=== PATIENT | female | born 1960 | race Caucasian/White ===

== ENCOUNTER 2020-06-26 02:53 | Inpatient (IN) | payer SELFPAY ==
[2020-06-26] MEDS ORDERED: Aspirin 325 MG TAB ONE ×2 (03:46→09:10)
[2020-06-26 05:37] VITALS: BMI 31.0
[2020-06-26] MEDS ORDERED: Acetaminophen 325 MG TAB PO PRN (08:21)
[2020-06-26] MEDS ORDERED: Cepastat Lozenges 1 LOZ PO PRN (08:21)
[2020-06-26] MEDS ORDERED: Bisacodyl 5 MG TAB PO PRN (08:21)
[2020-06-26] MEDS ORDERED: GUAIFENESIN SF SOLN 200 MG/10 ML UDCUP PO PRN (08:21)
[2020-06-26] MEDS ORDERED: hydrALAZINE 20 MG/ML VIAL SLOW IVP PRN (08:21)
[2020-06-26] MEDS ORDERED: Sodium Chloride 0.65% Nasal 44 ML BOT EA NARE PRN (08:21)
[2020-06-26] MEDS ORDERED: Calcium Carbonate 500 MG ChewTAB PO PRN (08:21)
[2020-06-26] MEDS ORDERED: Loperamide HCl 2 MG CAP PO PRN (08:21)
[2020-06-26] MEDS ORDERED: Loratadine 10 MG TAB PO PRN (08:21)
[2020-06-26] MEDS ORDERED: Zolpidem Tartrate 5 MG TAB PO PRN (08:21)
[2020-06-26] MEDS ORDERED: Senokot S 8.6-50 MG TAB PO PRN ×2 (08:21→08:23)
[2020-06-26] MEDS ORDERED: Ondansetron PF 4 MG/2 ML Vial IVP PRN ×2 (08:21→08:23)
[2020-06-26] MEDS ORDERED: Ondansetron ODT 4 MG TAB PO PRN ×2 (08:21→08:23)
[2020-06-26] MEDS ORDERED: HYDROcodone/Acetaminophen 5/325 mg Tablet PO PRN (08:23)
[2020-06-26] MEDS ORDERED: Famotidine/PF 20 mg/2ml Vial ONE (09:10)
[2020-06-26] MEDS ORDERED: Enoxaparin Sodium 40 MG/0.4 ML SYRINGE ONE (09:10)
[2020-06-26] MEDS ORDERED: Famotidine 20 MG TAB ONE (09:12)
[2020-06-26] MEDS: Aspirin 325 mg Enteric Coated Tablet PO SCH (09:34)
[2020-06-26] MEDS: Famotidine 20 MG TAB PO SCH ×2 (09:34→21:29)
[2020-06-26] MEDS: Enoxaparin Sodium 40 MG/0.4 ML SYRINGE SC SCH (09:34)
[2020-06-26] MEDS: Carvedilol 3.125 MG TAB PO SCH (11:09)
[2020-06-26] MEDS ORDERED: Atorvastatin Calcium 40 MG TAB PO SCH (21:00)
[2020-06-26] MEDS ORDERED: Carvedilol 3.125 MG TAB PO SCH (21:00)
[2020-06-27 05:03] LABS: #Eosinphils 0.1 thou/uL (0.0-0.7); #Lymphocytes 2.8 thou/uL (1.20-3.40); #Monocytes 0.4 thou/uL (0.11-0.59); #Neutrophils 2.5 thou/uL (1.40-6.50); %Basophils 0.5 % (0.0-1.0); %Eosinophils 2.1 % (0.0-10.0); %Lymphocytes 47.8 % (21.0-51.0); %Monocytes 7.3 % (0.0-10.0); %Neutrophils 42.3 % (42.0-75.0); Hemoglobin 12.8 g/dL (12.0-16.0); Mean Corpuscular HGB CONC 33.7 g/dL (32.0-36.0); Mean Corpuscular Hemoglobin 32.8 pg (27.0-31.0); Mean Corpuscular Volume 97.3 fL (78.0-98.0); Platelet Count 191 thou/uL (130-400); RBC Distribution Width 11.5 % (11.5-14.5); Red Blood Cell (RBC) Count 3.91 mill/uL (4.20-5.40); White Blood Cell (WBC) Count 5.9 thou/uL (4.8-10.8)
[2020-06-27 05:28] LABS: ALT (SGPT) 14 U/L (8-55); AST (SGOT) 12 U/L (5-34); Albumin 3.4 g/dL (3.5-5.0); Alkaline Phosphatase 63 U/L (40-110); Anion Gap 9 mmol/L (10-20); BUN (Urea Nitrogen) 13 mg/dL (9.8-20.1); Bilirubin, Total 0.4 mg/dL (0.2-1.2); Calc. Creatinine Clearance 131 mL/min (70-130); Calcium 7.9 mg/dL (7.8-10.44); Carbon Dioxide 23 mmol/L (22-29); Cardiac Risk 3.1 (Less than 4.5); Chloride 110 mmol/L (98-107); Cholesterol 162 mg/dl (< 200 Desired); Globulin 2.4 g/dL (2.4-3.5); Glucose 97 mg/dL (70-105); HDL Cholesterol 52 mg/dL (>60 Neg Risk); LDL Cholesterol, Calculated 100 mg/dL; Potassium 3.7 mmol/L (3.5-5.1); Protein, Total 5.8 g/dL (6.0-8.3); Sodium 138 mmol/L (136-145); Triglycerides 49 mg/dL (Less than 150)
[2020-06-27 05:41] LABS: Syphilis Antibody Nonreactive (Nonreactive); Syphilis Antibody Index 0.03 S/CO (<1.00 Non-Reactive)
[2020-06-27] MEDS: Carvedilol 3.125 MG TAB PO SCH (09:37)
[2020-06-27] MEDS: Famotidine 20 MG TAB PO SCH (09:37)
[2020-06-27] MEDS: Enoxaparin Sodium 40 MG/0.4 ML SYRINGE SC SCH (09:37)
[2020-06-27] MEDS: Aspirin 325 mg Enteric Coated Tablet PO SCH (09:37)
[2020-06-27 11:33] VITALS: TEMP 97.4
[2020-06-27 12:58] VITALS: BP 132/78
== END 2020-06-27 14:34 | disposition home or self-care (01) | DRG 69 ==
LOC: ERS 02:53 → ERHOLD 03:52 → 2SE 13:30
PROVIDERS: ADMIT Student in an Organized Health Care Education/Training Program; ATTEND Hospitalist
DX: G45.9 Transient cerebral ischemic attack, unspecified (principal); E66.9 Obesity, unspecified; I10 Essential (primary) hypertension; E78.5 Hyperlipidemia, unspecified; Z68.31 Body mass index [BMI] 31.0-31.9, adult; Z86.73 Personal history of transient ischemic attack (TIA), and cerebral infarction without residual deficits; Z79.899 Other long term (current) drug therapy; Z79.82 Long term (current) use of aspirin
CPT/HCPCS: 36415; 70551; 80053; 80061; 85025; 86780; 99285; J1650; S0028

== ENCOUNTER 2021-01-11 02:14 | Emergency (ER) | payer SELFPAY ==
[2021-01-11] MEDS ORDERED: Morphine 4 MG/ML VIAL ONE (02:45)
[2021-01-11] MEDS ORDERED: HYDROcodone/Acetaminophen 5/325 mg Tablet ONE (04:48)
[2021-01-11] MEDS ORDERED: Ondansetron PF 4 MG/2 ML Vial ONE (04:51)
[2021-01-11] MEDS ORDERED: Promethazine HCl 25 MG/ML VIAL ONE (04:59)
[2021-01-11] MEDS ORDERED: Ketorolac Tromethamine 30 MG/ML VIAL ONE (16:33)
[2021-01-11] MEDS ORDERED: Famotidine 20 MG TAB ONE (17:50)
[2021-01-11] MEDS ORDERED: Mag-Al 1200 mg/1200 mg/30 ML UDCUP ONE (17:50)
[2021-01-11] MEDS ORDERED: Lidocaine Viscous Sol 2% 15 ml UD Cup ONE (17:50)
== END 2021-01-11 06:05 | disposition home or self-care (01) ==
LOC: ERS 02:14
DX: K76.89 Other specified diseases of liver (principal); I10 Essential (primary) hypertension; E78.5 Hyperlipidemia, unspecified; Z86.73 Personal history of transient ischemic attack (TIA), and cerebral infarction without residual deficits; Z79.02 Long term (current) use of antithrombotics/antiplatelets; Z79.899 Other long term (current) drug therapy
CPT/HCPCS: 76705; 96365; 96375; J1885; J2270; J2405; J2550

== ENCOUNTER 2021-01-11 13:55 | Emergency (ER) | payer SELFPAY ==
[2021-01-11 14:36] LABS: #Basophils 0.1 thou/uL (0.0-0.2); #Eosinphils 0.1 thou/uL (0.0-0.7); #Lymphocytes 2.2 thou/uL (1.20-3.40); #Monocytes 0.6 thou/uL (0.11-0.59); #Neutrophils 4.1 thou/uL (1.40-6.50); %Basophils 0.7 % (0.0-1.0); %Lymphocytes 31.4 % (21.0-51.0); %Monocytes 8.1 % (0.0-10.0); %Neutrophils 58.9 % (42.0-75.0); Hemoglobin 14.4 g/dL (12.0-16.0); Mean Corpuscular HGB CONC 35.9 g/dL (32.0-36.0); Mean Corpuscular Hemoglobin 34.4 pg (27.0-31.0); Mean Corpuscular Volume 95.9 fL (78.0-98.0); Mean Platelet Volume 7.9 fL (7.4-10.4); Platelet Count 215 thou/uL (130-400); RBC Distribution Width 11.2 % (11.5-14.5); White Blood Cell (WBC) Count 6.9 thou/uL (4.8-10.8)
[2021-01-11 14:50] LABS: ALT (SGPT) 15 U/L (8-55); AST (SGOT) 16 U/L (5-34); Alkaline Phosphatase 76 U/L (40-110); Anion Gap 12 mmol/L (10-20); BUN (Urea Nitrogen) 19 mg/dL (9.8-20.1); Bilirubin, Total 0.8 mg/dL (0.2-1.2); Calc. Creatinine Clearance 0 mL/min (70-130); Carbon Dioxide 23 mmol/L (22-29); Chloride 107 mmol/L (98-107); Globulin 2.5 g/dL (2.4-3.5); Glucose 96 mg/dL (70-105); Lipase 41 U/L (8-78); Potassium 4.1 mmol/L (3.5-5.1); Protein, Total 6.5 g/dL (6.0-8.3); Sodium 138 mmol/L (136-145)
[2021-01-11 17:50] LABS: Bacteria/HPF None Seen HPF (None Seen); Bilirubin Negative (Negative); Blood, Urine Negative (Negative); Clarity Clear (Clear); Glucose, Urine (Dipstick) Normal (Negative); Ketone, Urine Trace mg/dL (Negative); Leukocyte 75 Leu/uL (Negative); Nitrite Negative (Negative); Protein, Urine (Dipstick) Negative (Neg-Trace); RBC/HPF 0-3 HPF (0-3); Specific Gravity, Urine 1.016 (1.002-1.036); Squamous Epithelial 0-3 HPF (0-3); Urobilinogen Normal mg/dL (Less than 2); WBC/HPF 0-3 HPF (0-3); pH, Urine 6.5 (5.0-9.0)
== END 2021-01-11 18:30 | disposition home or self-care (01) ==
LOC: ERS 13:55
DX: R10.13 Epigastric pain (principal); I10 Essential (primary) hypertension; E78.5 Hyperlipidemia, unspecified; Z86.73 Personal history of transient ischemic attack (TIA), and cerebral infarction without residual deficits
CPT/HCPCS: 36415; 71045; 74177; 80053; 81003; 81015; 83690; 84484; 85025; 85379; 93005; 96374

== ENCOUNTER 2021-11-27 20:20 | Inpatient (IN) | payer SELFPAY ==
[~2021-11-27 20:20] MED LIST: Iopamidol-370 76% 500 ML 1 ML ONE
[2021-11-27] MEDS ORDERED: Morphine 4 MG/ML VIAL ONE (20:56)
[2021-11-27] MEDS ORDERED: Ondansetron PF 4 MG/2 ML Vial ONE (20:56)
[2021-11-27 21:04] LABS: #Eosinphils 0.1 thou/uL (0.0-0.7); #Lymphocytes 1.8 thou/uL (1.20-3.40); #Monocytes 0.9 thou/uL (0.11-0.59); #Neutrophils 6.9 thou/uL (1.40-6.50); %Basophils 0.5 % (0.0-1.0); %Eosinophils 0.7 % (0.0-10.0); %Lymphocytes 18.2 % (21.0-51.0); %Monocytes 8.9 % (0.0-10.0); %Neutrophils 71.6 % (42.0-75.0); Hemoglobin 13.1 g/dL (12.0-16.0); Mean Corpuscular HGB CONC 34.7 g/dL (32.0-36.0); Mean Corpuscular Hemoglobin 33.3 pg (27.0-31.0); Mean Corpuscular Volume 96.1 fL (78.0-98.0); Mean Platelet Volume 7.7 fL (7.4-10.4); Platelet Count 274 thou/uL (130-400); RBC Distribution Width 11.7 % (11.5-14.5); Red Blood Cell (RBC) Count 3.94 mill/uL (4.20-5.40); White Blood Cell (WBC) Count 9.6 thou/uL (4.8-10.8)
[2021-11-27] MEDS ORDERED: Fentanyl 100 MCG/2 ML VIAL ONE (21:20)
[2021-11-27 21:46] LABS: ALT (SGPT) 16 U/L (8-55); AST (SGOT) 18 U/L (5-34); Albumin 3.8 g/dL (3.5-5.0); Alkaline Phosphatase 97 U/L (40-110); Anion Gap 16 mmol/L (10-20); BUN (Urea Nitrogen) 14 mg/dL (9.8-20.1); Calc. Creatinine Clearance 0 mL/min (70-130); Carbon Dioxide 26 mmol/L (22-29); Chloride 102 mmol/L (98-107); Estimated GFR 86; Globulin 3.3 g/dL (2.4-3.5); Glucose 118 mg/dL (70-105); Lipase 37 U/L (8-78); Potassium 3.8 mmol/L (3.5-5.1); Protein, Total 7.1 g/dL (6.0-8.3); Sodium 140 mmol/L (136-145)
[2021-11-27 22:06] LABS: Bilirubin, Total 0.3 mg/dL (0.2-1.2)
[2021-11-27] MEDS ORDERED: Piperacillin/Tazobactam 4.5 GM VIAL ONE (22:29)
[2021-11-27 23:19] LABS: Bilirubin Negative (Negative); Blood, Urine Negative (Negative); Clarity Turbid (Clear); Glucose, Urine (Dipstick) Normal (Negative); Ketone, Urine Negative (Negative); Leukocyte Negative Leu/uL (Negative); Nitrite Negative (Negative); Protein, Urine (Dipstick) Negative (Neg-Trace); Urobilinogen Normal mg/dL (Less than 2)
[2021-11-27 23:21] LABS: Specific Gravity, Urine 1.048 (1.002-1.036)
[2021-11-28] MEDS ORDERED: Morphine 4 MG/ML VIAL SLOW IVP PRN (00:19)
[2021-11-28] MEDS: Ondansetron PF 4 MG/2 ML Vial IVP PRN ×3 (00:27→22:10)
[2021-11-28] MEDS: Lactated Ringer's 1,000 ML IV SCH ×2 (00:27→09:26)
[2021-11-28 01:19] VITALS: BMI 26.7
[2021-11-28] MEDS: Fentanyl 100 MCG/2 ML VIAL SLOW IVP PRN ×3 (02:19→14:53)
[2021-11-28] MEDS: Ketorolac Tromethamine 30 MG/ML VIAL IVP PRN ×3 (02:20→16:05)
[2021-11-28] MEDS ORDERED: Piperacillin/Tazobactam 4.5 GM in Sodium Chloride 0.9% 100 ML IVPB SCH (05:00)
[2021-11-28] MEDS ORDERED: Promethazine HCl 25 MG/ML VIAL IM PRN (15:20)
[2021-11-28] MEDS ORDERED: diphenhydrAMINE 25 MG CAP PO PRN (15:20)
[2021-11-28] MEDS ORDERED: Zolpidem Tartrate 5 MG TAB PO PRN (15:20)
[2021-11-28] MEDS ORDERED: Naloxone HCl 0.4 mg/ml Vial IV PRN (15:20)
[2021-11-28] MEDS ORDERED: diphenhydrAMINE 50 MG/ML VIAL IM PRN (15:20)
[2021-11-28] MEDS ORDERED: HYDROmorphone 10 mg/100 ml CADD IVPB PRN (15:20)
[2021-11-28] MEDS ORDERED: diphenhydrAMINE 50 MG/ML VIAL IVP PRN (15:20)
[2021-11-28] MEDS ORDERED: Ondansetron PF 4 MG/2 ML Vial IVP PRN (15:20)
[2021-11-28] MEDS ORDERED: Communication Order-Pharmacy FS SCH (15:30)
[2021-11-28] MEDS: D5 1/2 NS w/20 mEq KCL 1,000 ML IV SCH ×2 (16:06→19:39)
[2021-11-28] MEDS: Piperacillin/Tazobactam 3.375 GM in Sodium Chloride 0.9% 100 ML IVPB SCH (16:11)
[2021-11-28] MEDS ORDERED: Piperacillin/Tazobactam 3.375 GM in Sodium Chloride 0.9% 100 ML IVPB SCH (18:00)
[2021-11-29] MEDS: Piperacillin/Tazobactam 3.375 GM in Sodium Chloride 0.9% 100 ML IVPB SCH ×3 (00:08→15:59)
[2021-11-29 06:18] LABS: #Eosinphils 0.1 thou/uL (0.0-0.7); #Lymphocytes 2.2 thou/uL (1.20-3.40); #Monocytes 0.7 thou/uL (0.11-0.59); #Neutrophils 4.4 thou/uL (1.40-6.50); %Basophils 0.4 % (0.0-1.0); %Eosinophils 0.8 % (0.0-10.0); %Lymphocytes 29.7 % (21.0-51.0); %Monocytes 9.9 % (0.0-10.0); %Neutrophils 59.2 % (42.0-75.0); Mean Corpuscular HGB CONC 34.1 g/dL (32.0-36.0); Mean Corpuscular Hemoglobin 33.1 pg (27.0-31.0); Mean Corpuscular Volume 97.2 fL (78.0-98.0); Platelet Count 209 thou/uL (130-400); RBC Distribution Width 11.7 % (11.5-14.5); Red Blood Cell (RBC) Count 3.31 mill/uL (4.20-5.40); White Blood Cell (WBC) Count 7.4 thou/uL (4.8-10.8)
[2021-11-29 06:32] LABS: Anion Gap 13 mmol/L (10-20); BUN (Urea Nitrogen) 6 mg/dL (9.8-20.1); Calc. Creatinine Clearance 117 mL/min (70-130); Calcium 8.6 mg/dL (7.8-10.44); Carbon Dioxide 25 mmol/L (22-29); Chloride 106 mmol/L (98-107); Estimated GFR 101; Glucose 114 mg/dL (70-105); Potassium 3.8 mmol/L (3.5-5.1); Sodium 140 mmol/L (136-145)
[2021-11-29] MEDS: D5 1/2 NS w/20 mEq KCL 1,000 ML IV SCH ×2 (09:14→15:58)
[2021-11-29] MEDS: Ketorolac Tromethamine 30 MG/ML VIAL IVP PRN (09:29)
[2021-11-29] MEDS: Pantoprazole 40 MG VIAL IVP SCH (10:15)
[2021-11-29] MEDS ORDERED: Polyethylene Glycol 3350 17 GM Packet PO SCH (11:30)
[2021-11-29] MEDS ORDERED: Bisacodyl 10 MG SUPP PR SCH (11:30)
[2021-11-30] MEDS: Piperacillin/Tazobactam 3.375 GM in Sodium Chloride 0.9% 100 ML IVPB SCH ×3 (01:32→16:27)
[2021-11-30] MEDS: D5 1/2 NS w/20 mEq KCL 1,000 ML IV SCH ×2 (02:50→08:49)
[2021-11-30] MEDS: Pantoprazole 40 MG VIAL IVP SCH (08:50)
[2021-11-30] MEDS ORDERED: Magnesium Citrate 300 ML BOT PO SCH (09:45)
[2021-11-30] MEDS ORDERED: Fentanyl 100 MCG/2 ML VIAL SLOW IVP PRN (13:43)
[2021-11-30] MEDS: HYDROcodone/Acetaminophen 7.5/325 mg Tablet PO PRN ×2 (17:23→23:37)
[2021-11-30] MEDS: Ketorolac Tromethamine 30 MG/ML VIAL IVP PRN (23:38)
[2021-12-01] MEDS: Piperacillin/Tazobactam 3.375 GM in Sodium Chloride 0.9% 100 ML IVPB SCH ×2 (00:16→08:35)
[2021-12-01] MEDS: D5 1/2 NS w/20 mEq KCL 1,000 ML IV SCH (05:18)
[2021-12-01] MEDS: Pantoprazole 40 MG VIAL IVP SCH (08:35)
[2021-12-01 12:06] VITALS: BP 126/81; TEMP 97.8
== END 2021-12-01 14:00 | disposition home or self-care (01) | DRG 392 ==
LOC: ERS 20:20 → SURG B 21:59 → OBSVTOIN 11-28 17:25
PROVIDERS: ADMIT Surgery; ATTEND Surgery
DX: K57.20 Diverticulitis of large intestine with perforation and abscess without bleeding (principal); I10 Essential (primary) hypertension; E78.5 Hyperlipidemia, unspecified; Z86.73 Personal history of transient ischemic attack (TIA), and cerebral infarction without residual deficits; Z79.899 Other long term (current) drug therapy; Z79.02 Long term (current) use of antithrombotics/antiplatelets; Z79.82 Long term (current) use of aspirin
CPT/HCPCS: 36415; 74177; 80048; 80053; 81003; 83605; 83690; 85025; 93005; 96361; 96365; 96366; 96374; 96375; 96376; C9113; G0378; J1885; J2270; J2405; J2543; J2550; J3010; J3480; J3490; J7120; Q9967

== ENCOUNTER 2021-12-05 19:42 | Inpatient (IN) | payer SELFPAY ==
[2021-12-05] MEDS ORDERED: hydrALAZINE 20 MG/ML VIAL SLOW IVP PRN (19:45)
[2021-12-05] MEDS ORDERED: Dextrose 50% Abboject 50 ML SYRINGE SLOW IVP PRN (19:45)
[2021-12-05] MEDS ORDERED: GoLYTELY 4,000 ml Bottle PO SCH (19:45)
[2021-12-05] MEDS ORDERED: Promethazine HCl 25 MG/ML VIAL IM PRN (19:45)
[2021-12-05] MEDS ORDERED: Ketorolac Tromethamine 30 MG/ML VIAL IVP PRN (19:45)
[2021-12-05] MEDS ORDERED: Sodium Chloride 0.9% 1,000 ML IV SCH (19:45)
[2021-12-05] MEDS ORDERED: Dextrose 5% in Water 1,000 ML IV PRN (19:45)
[2021-12-05 20:27] LABS: #Basophils 0.1 thou/uL (0.0-0.2); #Eosinphils 0.1 thou/uL (0.0-0.7); #Lymphocytes 2.4 thou/uL (1.20-3.40); #Monocytes 0.6 thou/uL (0.11-0.59); #Neutrophils 4.3 thou/uL (1.40-6.50); %Basophils 0.9 % (0.0-1.0); %Eosinophils 0.9 % (0.0-10.0); %Lymphocytes 32.4 % (21.0-51.0); %Monocytes 7.9 % (0.0-10.0); %Neutrophils 57.8 % (42.0-75.0); Hemoglobin 12.9 g/dL (12.0-16.0); Mean Corpuscular HGB CONC 33.9 g/dL (32.0-36.0); Mean Corpuscular Hemoglobin 32.4 pg (27.0-31.0); Mean Corpuscular Volume 95.6 fL (78.0-98.0); Mean Platelet Volume 7.6 fL (7.4-10.4); Platelet Count 370 thou/uL (130-400); RBC Distribution Width 11.7 % (11.5-14.5); Red Blood Cell (RBC) Count 3.99 mill/uL (4.20-5.40); White Blood Cell (WBC) Count 7.4 thou/uL (4.8-10.8)
[2021-12-05 20:44] LABS: Anion Gap 16 mmol/L (10-20); BUN (Urea Nitrogen) 19 mg/dL (9.8-20.1); Calc. Creatinine Clearance 0 mL/min (70-130); Calcium 9.4 mg/dL (7.8-10.44); Carbon Dioxide 23 mmol/L (22-29); Chloride 107 mmol/L (98-107); Estimated GFR 81; Glucose 135 mg/dL (70-105); Potassium 3.5 mmol/L (3.5-5.1); Sodium 142 mmol/L (136-145)
[2021-12-05] MEDS: Famotidine 20 MG TAB PO SCH (21:37)
[2021-12-05] MEDS: Carvedilol 3.125 MG TAB PO SCH (21:53)
[2021-12-05] MEDS ORDERED: Acetaminophen 325 MG TAB PO PRN (21:59)
[2021-12-05 22:03] LABS: Bacteria/HPF None Seen HPF (None Seen); Bilirubin Negative (Negative); Blood, Urine Negative (Negative); Clarity Extra Turbid (Clear); Glucose, Urine (Dipstick) Normal (Negative); Ketone, Urine Trace mg/dL (Negative); Leukocyte Negative Leu/uL (Negative); Nitrite Negative (Negative); Protein, Urine (Dipstick) Negative (Neg-Trace); RBC/HPF 0-3 HPF (0-3); Specific Gravity, Urine 1.019 (1.002-1.036); Squamous Epithelial 0-3 HPF (0-3); Urobilinogen Normal mg/dL (Less than 2); WBC/HPF 0-3 HPF (0-3)
[2021-12-05] MEDS: Famotidine/PF 20 mg/2ml Vial SLOW IVP SCH (22:25)
[2021-12-05] MEDS: D5 1/2 NS w/20 mEq KCL 1,000 ML IV SCH (22:37)
[2021-12-06] MEDS: Piperacillin/Tazobactam 3.375 GM in Sodium Chloride 0.9% 100 ML IVPB SCH ×3 (00:28→16:06)
[2021-12-06] MEDS: Ondansetron PF 4 MG/2 ML Vial IVP PRN ×3 (02:03→21:34)
[2021-12-06] MEDS: Morphine 4 MG/ML VIAL SLOW IVP PRN ×3 (02:05→21:34)
[2021-12-06] MEDS: D5 1/2 NS w/20 mEq KCL 1,000 ML IV SCH ×3 (05:00→21:36)
[2021-12-06] MEDS: Famotidine 20 MG TAB PO SCH ×2 (08:28→20:04)
[2021-12-06] MEDS: Famotidine/PF 20 mg/2ml Vial SLOW IVP SCH ×2 (08:28→21:05)
[2021-12-06] MEDS ORDERED: PROPOFOL 200 MG/20 ML VIAL ONE (10:30)
[2021-12-06] MEDS ORDERED: EPINEPHrine 1 MG/10 ML Abboject SYRINGE ONE (10:30)
[2021-12-06] MEDS ORDERED: Phenylephrine 10 MG/ML VIAL ONE (10:30)
[2021-12-06] MEDS ORDERED: Fentanyl 100 MCG/2 ML VIAL ONE (11:35)
[2021-12-06] MEDS ORDERED: Ketorolac Tromethamine 30 MG/ML VIAL IVP PRN (14:45)
[2021-12-06] MEDS: Neomycin 500 mg Tablet PO SCH ×3 (17:52→21:33)
[2021-12-06] MEDS: Carvedilol 3.125 MG TAB PO SCH (20:04)
[2021-12-07] MEDS: Piperacillin/Tazobactam 3.375 GM in Sodium Chloride 0.9% 100 ML IVPB SCH ×4 (00:18→23:51)
[2021-12-07] MEDS: Morphine 4 MG/ML VIAL SLOW IVP PRN ×2 (05:59→13:47)
[2021-12-07] MEDS: Ondansetron PF 4 MG/2 ML Vial IVP PRN ×2 (05:59→13:47)
[2021-12-07] MEDS: D5 1/2 NS w/20 mEq KCL 1,000 ML IV SCH ×3 (06:39→21:53)
[2021-12-07] MEDS: Famotidine 20 MG TAB PO SCH ×2 (08:06→20:42)
[2021-12-07] MEDS: Famotidine/PF 20 mg/2ml Vial SLOW IVP SCH ×2 (08:06→20:42)
[2021-12-07] MEDS ORDERED: Bupivacaine 0.25% HCL 30 ML VIAL ONE ×2 (09:37→10:35)
[2021-12-07] MEDS ORDERED: Fentanyl 100 MCG/2 ML VIAL ONE ×2 (09:43→12:58)
[2021-12-07] MEDS ORDERED: Midazolam HCl 2 mg/2 ml Vial ONE (09:43)
[2021-12-07] MEDS ORDERED: fentaNYL Citrate/PF 100 MCG/2 ML SYRINGE ONE (10:03)
[2021-12-07] MEDS ORDERED: SUGAMMADEX SODIUM 200 MG/2 ML VIAL ONE (10:03)
[2021-12-07] MEDS ORDERED: Bupivacaine/Epinephrine 0.25% 30 ML VIAL ONE (10:07)
[2021-12-07] MEDS ORDERED: Albumin 5% 0 ML ONE (10:30)
[2021-12-07] MEDS ORDERED: Ondansetron PF 4 MG/2 ML Vial ONE (10:35)
[2021-12-07] MEDS ORDERED: PROPOFOL 200 MG/20 ML VIAL ONE (10:35)
[2021-12-07] MEDS ORDERED: Glycopyrrolate 0.2 MG/ML 5 ML SYRINGE ONE (10:35)
[2021-12-07] MEDS ORDERED: Dexamethasone 20 MG/5 ML VIAL ONE (10:35)
[2021-12-07] MEDS ORDERED: Labetalol HCl 100 MG/20 ML VIAL ONE (10:35)
[2021-12-07] MEDS ORDERED: Lidocaine 1% MPF 2 ML VIAL ONE (10:35)
[2021-12-07] MEDS ORDERED: NEOSTIGMINE 3 MG/3 ML SYR 3 MG/3 ML SYRINGE ONE (10:35)
[2021-12-07] MEDS ORDERED: Ketorolac Tromethamine 30 MG/ML VIAL ONE (10:35)
[2021-12-07] MEDS ORDERED: Rocuronium Bromide 10 MG/ML (10ML VIAL) ONE (10:35)
[2021-12-07] MEDS ORDERED: Promethazine HCl 25 MG/ML VIAL IM PRN (12:09)
[2021-12-07] MEDS ORDERED: Ondansetron HCl/PF 4 MG/2 ML Vial IVP PRN (12:09)
[2021-12-07] MEDS ORDERED: Promethazine HCl 25 MG/ML VIAL IVPB PRN (12:09)
[2021-12-07] MEDS ORDERED: Ondansetron PF 4 MG/2 ML Vial IVP PRN (13:45)
[2021-12-07] MEDS ORDERED: Ketorolac Tromethamine 30 MG/ML VIAL IVP PRN (13:45)
[2021-12-07] MEDS ORDERED: hydrALAZINE 20 MG/ML VIAL SLOW IVP PRN (13:45)
[2021-12-07] MEDS: Fentanyl 100 MCG/2 ML VIAL SLOW IVP PRN ×2 (14:39→17:01)
[2021-12-07] MEDS ORDERED: Naloxone HCl 0.4 mg/ml Vial IV PRN (19:00)
[2021-12-07] MEDS ORDERED: diphenhydrAMINE 50 MG/ML VIAL IM/IV PRN (19:00)
[2021-12-07] MEDS ORDERED: diphenhydrAMINE 25 MG CAP PO PRN (19:00)
[2021-12-07] MEDS: Morphine Sulfate 100 MG in Dextrose 5% in Water 98 ML IV SCH (19:44)
[2021-12-07] MEDS: Carvedilol 3.125 MG TAB PO SCH (20:42)
[2021-12-07] MEDS: Promethazine HCl 25 MG/ML VIAL IM PRN (20:42)
[2021-12-07] MEDS: Ketorolac Tromethamine 30 MG/ML VIAL IVP SCH (23:52)
[2021-12-08 05:38] LABS: #Lymphocytes 1.1 thou/uL (1.20-3.40); #Monocytes 0.8 thou/uL (0.11-0.59); #Neutrophils 11.1 thou/uL (1.40-6.50); %Eosinophils 0.1 % (0.0-10.0); %Lymphocytes 8.5 % (21.0-51.0); %Monocytes 5.9 % (0.0-10.0); %Neutrophils 85.4 % (42.0-75.0); Hemoglobin 13.2 g/dL (12.0-16.0); Mean Corpuscular Hemoglobin 31.6 pg (27.0-31.0); Mean Corpuscular Volume 95.6 fL (78.0-98.0); Mean Platelet Volume 7.8 fL (7.4-10.4); Platelet Count 299 thou/uL (130-400); RBC Distribution Width 11.8 % (11.5-14.5); Red Blood Cell (RBC) Count 4.17 mill/uL (4.20-5.40); White Blood Cell (WBC) Count 12.9 thou/uL (4.8-10.8)
[2021-12-08 05:55] LABS: Anion Gap 14 mmol/L (10-20); BUN (Urea Nitrogen) 5 mg/dL (9.8-20.1); Calc. Creatinine Clearance 107 mL/min (70-130); Calcium 9.2 mg/dL (7.8-10.44); Carbon Dioxide 22 mmol/L (22-29); Chloride 104 mmol/L (98-107); Estimated GFR 100; Glucose 155 mg/dL (70-105); Potassium 4.1 mmol/L (3.5-5.1); Sodium 136 mmol/L (136-145)
[2021-12-08] MEDS: Ketorolac Tromethamine 30 MG/ML VIAL IVP SCH ×4 (06:17→23:31)
[2021-12-08] MEDS: D5 1/2 NS w/20 mEq KCL 1,000 ML IV SCH ×3 (06:18→22:08)
[2021-12-08] MEDS: Famotidine 20 MG TAB PO SCH ×2 (08:05→20:10)
[2021-12-08] MEDS: Piperacillin/Tazobactam 3.375 GM in Sodium Chloride 0.9% 100 ML IVPB SCH (08:06)
[2021-12-08] MEDS: Famotidine/PF 20 mg/2ml Vial SLOW IVP SCH ×2 (08:06→20:24)
[2021-12-08] MEDS ORDERED: HYDROcodone/Acetaminophen 7.5/325 mg Tablet PO PRN (12:44)
[2021-12-08] MEDS: Acetaminophen 500 MG TAB PO SCH ×4 (13:06→23:30)
[2021-12-08] MEDS: Carvedilol 3.125 MG TAB PO SCH (20:09)
[2021-12-09] MEDS: Acetaminophen 500 MG TAB PO SCH ×5 (05:08→20:01)
[2021-12-09] MEDS: Ketorolac Tromethamine 30 MG/ML VIAL IVP SCH ×3 (05:09→18:06)
[2021-12-09] MEDS: Famotidine 20 MG TAB PO SCH ×2 (08:25→20:01)
[2021-12-09] MEDS: Famotidine/PF 20 mg/2ml Vial SLOW IVP SCH ×2 (09:08→21:38)
[2021-12-09] MEDS: D5 1/2 NS w/20 mEq KCL 1,000 ML IV SCH (11:17)
[2021-12-09] MEDS: Morphine Sulfate 100 MG in Dextrose 5% in Water 98 ML IV SCH (12:52)
[2021-12-09] MEDS: Carvedilol 3.125 MG TAB PO SCH (20:01)
[2021-12-10] MEDS: Acetaminophen 500 MG TAB PO SCH ×6 (01:17→20:38)
[2021-12-10] MEDS: D5 1/2 NS w/20 mEq KCL 1,000 ML IV SCH ×3 (01:17→22:03)
[2021-12-10] MEDS: Famotidine 20 MG TAB PO SCH ×2 (08:31→20:40)
[2021-12-10] MEDS: Famotidine/PF 20 mg/2ml Vial SLOW IVP SCH (08:45)
[2021-12-10] MEDS ORDERED: HYDROcodone/Acetaminophen 7.5/325 mg Tablet PO PRN (11:53)
[2021-12-10] MEDS ORDERED: Fentanyl 100 MCG/2 ML VIAL SLOW IVP PRN (12:06)
[2021-12-10] MEDS ORDERED: HYDROcodone/Acetaminophen 5/325 mg Tablet ONE (14:31)
[2021-12-10] MEDS: Carvedilol 3.125 MG TAB PO SCH (20:37)
[2021-12-10] MEDS: Ketorolac Tromethamine 30 MG/ML VIAL IVP PRN (20:40)
[2021-12-11] MEDS: Acetaminophen 500 MG TAB PO SCH ×4 (03:07→20:33)
[2021-12-11] MEDS: Ketorolac Tromethamine 30 MG/ML VIAL IVP PRN (03:08)
[2021-12-11] MEDS: D5 1/2 NS w/20 mEq KCL 1,000 ML IV SCH ×2 (05:44→14:58)
[2021-12-11 05:58] LABS: #Eosinphils 0.5 thou/uL (0.0-0.7); #Lymphocytes 3.5 thou/uL (1.20-3.40); #Monocytes 0.7 thou/uL (0.11-0.59); #Neutrophils 3.7 thou/uL (1.40-6.50); %Basophils 0.5 % (0.0-1.0); %Eosinophils 5.5 % (0.0-10.0); %Lymphocytes 41.5 % (21.0-51.0); %Monocytes 8.9 % (0.0-10.0); %Neutrophils 43.6 % (42.0-75.0); Hemoglobin 11.9 g/dL (12.0-16.0); Mean Corpuscular HGB CONC 33.1 g/dL (32.0-36.0); Mean Corpuscular Hemoglobin 31.9 pg (27.0-31.0); Mean Corpuscular Volume 96.3 fL (78.0-98.0); Mean Platelet Volume 7.5 fL (7.4-10.4); Platelet Count 328 thou/uL (130-400); RBC Distribution Width 11.9 % (11.5-14.5); Red Blood Cell (RBC) Count 3.74 mill/uL (4.20-5.40); White Blood Cell (WBC) Count 8.4 thou/uL (4.8-10.8)
[2021-12-11 06:35] LABS: Anion Gap 13 mmol/L (10-20); BUN (Urea Nitrogen) 6 mg/dL (9.8-20.1); Calc. Creatinine Clearance 113 mL/min (70-130); Calcium 9.1 mg/dL (7.8-10.44); Carbon Dioxide 25 mmol/L (22-29); Chloride 102 mmol/L (98-107); Estimated GFR 100; Glucose 112 mg/dL (70-105); Potassium 3.9 mmol/L (3.5-5.1); Sodium 136 mmol/L (136-145)
[2021-12-11] MEDS: Aspirin Chewable 81 MG TAB PO SCH (09:20)
[2021-12-11] MEDS: Famotidine 20 MG TAB PO SCH ×2 (09:21→20:34)
[2021-12-11] MEDS: Morphine Sulfate 100 MG in Dextrose 5% in Water 98 ML IV SCH (09:23)
[2021-12-11] MEDS ORDERED: Milk Of Magnesia 30 ML UDCUP PO ONE (14:06)
[2021-12-11] MEDS: Carvedilol 3.125 MG TAB PO SCH (20:34)
[2021-12-12] MEDS: D5 1/2 NS w/20 mEq KCL 1,000 ML IV SCH ×3 (01:15→19:15)
[2021-12-12] MEDS: Acetaminophen 500 MG TAB PO SCH ×2 (04:14→09:11)
[2021-12-12] MEDS: Aspirin Chewable 81 MG TAB PO SCH (09:11)
[2021-12-12] MEDS: Famotidine 20 MG TAB PO SCH ×2 (09:11→20:27)
[2021-12-12] MEDS ORDERED: Fentanyl 100 MCG/2 ML VIAL SLOW IVP PRN (09:31)
[2021-12-12] MEDS ORDERED: HYDROcodone/Acetaminophen 5/325 mg Tablet PO PRN (09:32)
[2021-12-12] MEDS ORDERED: traMADol HCl 50 MG TAB PO PRN (09:32)
[2021-12-12] MEDS: Ondansetron PF 4 MG/2 ML Vial IVP PRN ×2 (09:48→14:55)
[2021-12-12] MEDS: Promethazine HCl 25 MG/ML VIAL IM PRN (15:50)
[2021-12-12] MEDS: HYDROcodone/Acetaminophen 5/325 mg Tablet PO PRN ×2 (18:32→21:47)
[2021-12-12] MEDS: Carvedilol 3.125 MG TAB PO SCH (20:26)
[2021-12-12] MEDS: traMADol HCl 50 MG TAB PO PRN (23:11)
[2021-12-13] MEDS: HYDROcodone/Acetaminophen 5/325 mg Tablet PO PRN ×4 (03:02→22:53)
[2021-12-13] MEDS: D5 1/2 NS w/20 mEq KCL 1,000 ML IV SCH ×2 (04:56→13:29)
[2021-12-13 06:10] LABS: #Basophils 0.1 thou/uL (0.0-0.2); #Eosinphils 0.4 thou/uL (0.0-0.7); #Lymphocytes 2.8 thou/uL (1.20-3.40); #Monocytes 0.5 thou/uL (0.11-0.59); #Neutrophils 3.1 thou/uL (1.40-6.50); %Basophils 0.8 % (0.0-1.0); %Eosinophils 6.3 % (0.0-10.0); %Lymphocytes 40.4 % (21.0-51.0); %Monocytes 7.4 % (0.0-10.0); %Neutrophils 45.1 % (42.0-75.0); Hemoglobin 12.2 g/dL (12.0-16.0); Mean Corpuscular HGB CONC 33.9 g/dL (32.0-36.0); Mean Corpuscular Hemoglobin 32.9 pg (27.0-31.0); Mean Platelet Volume 7.5 fL (7.4-10.4); Platelet Count 318 thou/uL (130-400); RBC Distribution Width 12.1 % (11.5-14.5); White Blood Cell (WBC) Count 6.9 thou/uL (4.8-10.8)
[2021-12-13 06:30] LABS: Anion Gap 11 mmol/L (10-20); BUN (Urea Nitrogen) 8 mg/dL (9.8-20.1); Calc. Creatinine Clearance 108 mL/min (70-130); Carbon Dioxide 26 mmol/L (22-29); Chloride 106 mmol/L (98-107); Estimated GFR 98; Glucose 110 mg/dL (70-105); Potassium 3.6 mmol/L (3.5-5.1); Sodium 139 mmol/L (136-145)
[2021-12-13] MEDS: Aspirin Chewable 81 MG TAB PO SCH (09:07)
[2021-12-13] MEDS: Famotidine 20 MG TAB PO SCH ×2 (09:07→20:16)
[2021-12-13] MEDS ORDERED: Milk Of Magnesia 30 ML UDCUP PO ONE (13:43)
[2021-12-13] MEDS: traMADol HCl 50 MG TAB PO PRN (15:26)
[2021-12-13] MEDS: Carvedilol 3.125 MG TAB PO SCH (20:16)
[2021-12-14] MEDS: traMADol HCl 50 MG TAB PO PRN ×2 (01:21→16:04)
[2021-12-14] MEDS: Famotidine 20 MG TAB PO SCH ×2 (09:30→21:12)
[2021-12-14] MEDS: Aspirin Chewable 81 MG TAB PO SCH (09:30)
[2021-12-14] MEDS ORDERED: Magnesium Citrate 300 ML BOT PO SCH (11:00)
[2021-12-14] MEDS: HYDROcodone/Acetaminophen 5/325 mg Tablet PO PRN ×2 (13:04→21:36)
[2021-12-14] MEDS ORDERED: Milk Of Magnesia 30 ML UDCUP PO SCH (16:15)
[2021-12-14] MEDS: D5 1/2 NS w/20 mEq KCL 1,000 ML IV SCH (16:33)
[2021-12-14] MEDS: Carvedilol 3.125 MG TAB PO SCH (21:13)
[2021-12-15] MEDS: D5 1/2 NS w/20 mEq KCL 1,000 ML IV SCH ×3 (07:13→20:16)
[2021-12-15] MEDS: Famotidine 20 MG TAB PO SCH ×2 (09:29→20:11)
[2021-12-15] MEDS: Aspirin Chewable 81 MG TAB PO SCH (09:29)
[2021-12-15] MEDS: traMADol HCl 50 MG TAB PO PRN (09:53)
[2021-12-15] MEDS: Ondansetron PF 4 MG/2 ML Vial IVP PRN (12:10)
[2021-12-15] MEDS ORDERED: Polyethylene Glycol 3350 17 GM Packet PO SCH ×3 (12:45→13:15)
[2021-12-15] MEDS: Carvedilol 3.125 MG TAB PO SCH (20:11)
[2021-12-15] MEDS: HYDROcodone/Acetaminophen 5/325 mg Tablet PO PRN (20:13)
[2021-12-16] MEDS: HYDROcodone/Acetaminophen 5/325 mg Tablet PO PRN ×3 (01:05→21:58)
[2021-12-16 03:54] VITALS: BMI 27.3
[2021-12-16] MEDS ORDERED: Polyethylene Glycol 3350 17 GM Packet PO SCH (09:00)
[2021-12-16] MEDS: Ondansetron PF 4 MG/2 ML Vial IVP PRN (09:44)
[2021-12-16] MEDS: traMADol HCl 50 MG TAB PO PRN (09:48)
[2021-12-16] MEDS: Aspirin Chewable 81 MG TAB PO SCH (09:48)
[2021-12-16] MEDS: Famotidine 20 MG TAB PO SCH ×2 (09:48→19:50)
[2021-12-16] MEDS: Polyethylene Glycol 3350 17 GM Packet PO SCH (10:01)
[2021-12-16] MEDS: Carvedilol 3.125 MG TAB PO SCH (19:50)
[2021-12-17] MEDS: Aspirin Chewable 81 MG TAB PO SCH (10:29)
[2021-12-17] MEDS: Famotidine 20 MG TAB PO SCH (10:29)
[2021-12-17] MEDS: Polyethylene Glycol 3350 17 GM Packet PO SCH (10:30)
[2021-12-17 13:39] VITALS: TEMP 98
[2021-12-17 17:25] VITALS: BP 137/83
[2021-12-17] MEDS: D5 1/2 NS w/20 mEq KCL 1,000 ML IV SCH (17:31)
== END 2021-12-17 18:30 | disposition home or self-care (01) | DRG 330 ==
LOC: BBPSCS 19:42 → SURG B 19:43
PROVIDERS: ADMIT Surgery; ATTEND Surgery
PROC: 0DBL8ZZ Excision of Transverse Colon, Via Natural or Artificial Opening Endoscopic (ICD-10-PCS; principal; 2021-12-06)
PROC: 0DTG0ZZ Resection of Left Large Intestine, Open Approach (ICD-10-PCS; 2021-12-07)
PROC: 0DJD4ZZ Inspection of Lower Intestinal Tract, Percutaneous Endoscopic Approach (ICD-10-PCS; 2021-12-07)
DX: K57.20 Diverticulitis of large intestine with perforation and abscess without bleeding (principal); K56.609 Unspecified intestinal obstruction, unspecified as to partial versus complete obstruction; K56.7 Ileus, unspecified; Z20.822 Contact with and (suspected) exposure to COVID-19; K57.30 Diverticulosis of large intestine without perforation or abscess without bleeding; I10 Essential (primary) hypertension; E78.5 Hyperlipidemia, unspecified; K63.5 Polyp of colon; K59.00 Constipation, unspecified; Z79.899 Other long term (current) drug therapy; Z79.82 Long term (current) use of aspirin; Z79.02 Long term (current) use of antithrombotics/antiplatelets; Z88.8 Allergy status to other drugs, medicaments and biological substances; Z86.73 Personal history of transient ischemic attack (TIA), and cerebral infarction without residual deficits; Z86.16 Personal history of COVID-19
CPT/HCPCS: 36415; 74019; 80048; 81001; 82378; 85025; 88305; 88307; A4649; C1776; J0171; J1100; J1885; J2250; J2270; J2370; J2405; J2543; J2550; J2704; J3010; J3480; J3490; J7050; J7070; P9045; S0020; S0028

== ENCOUNTER 2021-12-26 18:30 | Inpatient (IN) | payer SELFPAY ==
[2021-12-26 19:24] LABS: #Basophils 0.1 thou/uL (0.0-0.2); #Eosinphils 0.2 thou/uL (0.0-0.7); #Lymphocytes 2.2 thou/uL (1.20-3.40); #Monocytes 0.5 thou/uL (0.11-0.59); #Neutrophils 3.1 thou/uL (1.40-6.50); %Basophils 1.5 % (0.0-1.0); %Eosinophils 3.6 % (0.0-10.0); %Lymphocytes 35.6 % (21.0-51.0); %Monocytes 7.6 % (0.0-10.0); %Neutrophils 51.8 % (42.0-75.0); Hemoglobin 12.2 g/dL (12.0-16.0); Mean Corpuscular HGB CONC 33.1 g/dL (32.0-36.0); Mean Corpuscular Hemoglobin 32.6 pg (27.0-31.0); Mean Corpuscular Volume 98.6 fL (78.0-98.0); Mean Platelet Volume 7.7 fL (7.4-10.4); Platelet Count 315 thou/uL (130-400); RBC Distribution Width 12.5 % (11.5-14.5); Red Blood Cell (RBC) Count 3.74 mill/uL (4.20-5.40)
[2021-12-26] MEDS ORDERED: Morphine 4 MG/ML VIAL ONE ×2 (19:24→21:35)
[2021-12-26] MEDS ORDERED: Ketorolac Tromethamine 30 MG/ML VIAL ONE (19:24)
[2021-12-26 19:41] LABS: ALT (SGPT) 9 U/L (8-55); AST (SGOT) 12 U/L (5-34); Albumin 3.9 g/dL (3.5-5.0); Alkaline Phosphatase 82 U/L (40-110); Anion Gap 11 mmol/L (10-20); BUN (Urea Nitrogen) 20 mg/dL (9.8-20.1); Bilirubin, Total 0.3 mg/dL (0.2-1.2); Calc. Creatinine Clearance 0 mL/min (70-130); Calcium 9.3 mg/dL (7.8-10.44); Carbon Dioxide 26 mmol/L (22-29); Chloride 106 mmol/L (98-107); Estimated GFR 93; Globulin 2.8 g/dL (2.4-3.5); Glucose 119 mg/dL (70-105); Lipase 41 U/L (8-78); Protein, Total 6.7 g/dL (6.0-8.3); Sodium 139 mmol/L (136-145)
[2021-12-26 20:06] LABS: Bilirubin Negative (Negative); Blood, Urine Negative (Negative); Clarity Turbid (Clear); Glucose, Urine (Dipstick) Normal (Negative); Ketone, Urine Negative (Negative); Leukocyte Negative Leu/uL (Negative); Nitrite Negative (Negative); Protein, Urine (Dipstick) Negative (Neg-Trace); Specific Gravity, Urine 1.023 (1.002-1.036); Urobilinogen Normal mg/dL (Less than 2); pH, Urine 6.5 (5.0-9.0)
[2021-12-26] MEDS ORDERED: Ondansetron PF 4 MG/2 ML Vial ONE (21:35)
[2021-12-26] MEDS ORDERED: Promethazine HCl 12.5 MG in Sodium Chloride 0.9% 50 ML IVPB SCH (21:45)
[2021-12-26 23:54] VITALS: BMI 24.5
[2021-12-26] MEDS ORDERED: Dextrose 50% Abboject 50 ML SYRINGE SLOW IVP PRN (23:58)
[2021-12-26] MEDS ORDERED: Dextrose 5% in Water 1,000 ML IV PRN (23:58)
[2021-12-26] MEDS ORDERED: hydrALAZINE 20 MG/ML VIAL SLOW IVP PRN (23:58)
[2021-12-26] MEDS ORDERED: Acetaminophen 325 MG TAB PO PRN (23:58)
[2021-12-26] MEDS ORDERED: Promethazine HCl 25 MG/ML VIAL IM PRN (23:58)
[2021-12-26] MEDS ORDERED: Ondansetron PF 4 MG/2 ML Vial IVP PRN (23:58)
[2021-12-27] MEDS: D5 1/2 NS w/20 mEq KCL 1,000 ML IV SCH ×4 (00:27→19:54)
[2021-12-27] MEDS ORDERED: Milk Of Magnesia 30 ML UDCUP PO SCH ×3 (00:30→16:00)
[2021-12-27] MEDS: Ketorolac Tromethamine 30 MG/ML VIAL IVP PRN ×2 (03:08→20:30)
[2021-12-27] MEDS: traMADol HCl 50 MG TAB PO PRN ×3 (06:14→17:43)
[2021-12-27] MEDS: Famotidine/PF 20 mg/2ml Vial SLOW IVP SCH ×2 (08:23→19:55)
[2021-12-27] MEDS: Enoxaparin Sodium 40 MG/0.4 ML SYRINGE SC SCH (08:26)
[2021-12-27] MEDS: Famotidine 20 MG TAB PO SCH ×2 (09:39→19:55)
[2021-12-27] MEDS ORDERED: Clopidogrel Bisulfate 75 MG TAB PO SCH (21:00)
[2021-12-27] MEDS ORDERED: Carvedilol 3.125 MG TAB PO SCH (21:00)
[2021-12-28] MEDS: Famotidine/PF 20 mg/2ml Vial SLOW IVP SCH (10:22)
[2021-12-28] MEDS: Enoxaparin Sodium 40 MG/0.4 ML SYRINGE SC SCH (10:23)
[2021-12-28] MEDS: Famotidine 20 MG TAB PO SCH (10:23)
[2021-12-28] MEDS: traMADol HCl 50 MG TAB PO PRN (12:48)
[2021-12-28 12:52] VITALS: BP 153/87; TEMP 97.5
== END 2021-12-28 13:40 | disposition home or self-care (01) | DRG 390 ==
LOC: ERS 18:30 → SURG B 22:40 → OBSVTOIN 12-27 17:20
PROVIDERS: ADMIT Surgery; ATTEND Surgery
DX: K56.41 Fecal impaction (principal); Z20.822 Contact with and (suspected) exposure to COVID-19; E78.5 Hyperlipidemia, unspecified; I10 Essential (primary) hypertension; Z79.899 Other long term (current) drug therapy; Z88.8 Allergy status to other drugs, medicaments and biological substances
CPT/HCPCS: 36415; 74177; 80053; 81003; 83605; 83690; 85025; 96375; G0378; J1885; J2270; J2405; J2550; J3480; Q9967; S0028